=== PATIENT | female | born 1995 | race Caucasian/White ===

== ENCOUNTER 2017-10-23 10:18 | Emergency (ER) | payer OTHER ==
[~2017-10-23] VITALS: Ht 182.9 cm; Wt 73.2 kg
[2017-10-23 10:29] VITALS: TEMP 37.1; Ht 182.9 cm; Wt 73.2 kg
[2017-10-23] MEDS ORDERED: AMPH20CA3 PO (10:49)
[2017-10-23] MEDS ORDERED: BUPRTAB51 PO (10:49)
[2017-10-23] MEDS ORDERED: MEDR1INJ3 IM (10:49)
[2017-10-23] MEDS ORDERED: DIPH1TAB87 PO (10:49)
[2017-10-23] MEDS ORDERED: LAMO200T35 PO (10:49)
--- NOTE | 2017-10-23 11:06 | DIAGNOSTIC IMAGING REPORT ---
L KNEE 1 OR 2 VIEWS ROUTINE CLINICAL HISTORY: Left knee pain COMPARISON: None. DISCUSSION: No fractures or dislocations are visualized. There is no radiographic evidence of a joint effusion. There are no erosive or destructive changes. IMPRESSION: No bony abnormalities identified. Electronically signed by: Gerry Cortez M.D. 10/23/2017 11:05 AM Dictated Date/Time: 10/23/2017 11:04 AM
[2017-10-23 12:29] VITALS: BP 119/72; PULSE 109; O2SAT 99
--- NOTE | 2017-10-23 18:39 | EMERGENCY ROOM VISIT NOTE ---
ED Visit Note First contact with patient: 10:59 Chief Complaint: Left knee pain. History of Present Illness: Ms. Duckworth is a 22-year-old white female who ambulates into the ED complaining of left knee pain. Historically patient reports 3 or 4 years ago she sustained a meniscus injury to her knee. This is was evaluated by orthopedics but no surgery was performed. Since that time she reports she has had no complications or problems with her knee. 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 When she got home she was feeling well. And when she woke this morning she reports she had developed left knee pain and has noted swelling over the anterior aspect of the knee. Currently she is complaining of an achy and throbbing sensation over the superior anterior aspect of the knee. She rates her discomfort 9/10. Her pain is nonradiating. Her pain worsens with flexion of the knee greater than 90 and hyperextension. She has not identified any alleviating factors related to the pain. She has not taken any medications for pain prior to arrival at the hospital. She denies any associated symptoms including recent trauma, recent repetitive trauma, hip pain, back pain, thigh pain, lower leg pain, ankle pain, leg weakness/numbness/tingling. Review of Systems: As noted above in history of present illness. Past Medical History: Anxiety/depression, attention deficit disorder. Current Medications: Lamictal, Wellbutrin, Adderall, Benadryl, Depo-Provera. Allergies to Medications: Azithromycin, nots. Social History: Patient is currently a university student and is employed; she feels safe in her home environment; she denies tobacco use. Physical Examination: Vital Signs: Date Time Temp Pulse Resp B/P (MAP) Pulse Ox O2 Delivery O2 Flow Rate FiO2 10/23/17 12:29 109 20 119/72 99 10/23/17 10:29 37.1 117 16 123/67 98 Room Air GENERAL: 22-year-old female in mild to moderate distress due to pain, nontoxic- appearing, afebrile and hemodynamically stable. NEUROLOGICAL: Awake, alert and oriented to person, place and time. Answering questions appropriately and following commands. Normal gait. Good hand eye coordination. SKIN: Warm, dry and pink. Left Knee: Resolving contusion over the central aspect of the patella. LEFT LOWER EXTREMITY: No gross bony deformity. No shortening or malrotation. No tenderness in the hip, thigh, lower leg, ankle or foot. Mild tenderness over the anterior knee just superior and inferior to the patella. This is where the majority of the patient's swelling is present. Negative ballottement test. Negative patellar apprehension test. No laxity of the collateral or cruciate ligaments. Because of the decreased range of motion I did not perform a Maribell's test. Decreased range of motion in flexion to approximately 90 and she had no hyperextension but was able to reach full extension. I do not appreciate any tenderness over the tendon osseous structures of the hamstrings or quadriceps muscle group. With the knee stabilized she had full range of motion in plantarflexion and dorsiflexion of the ankle and flexion and extension of all toes. Throughout the lower leg the skin was warm and pink and capillary refill was brisk. She is able to distinguish light sensations through all dermatomes. ED Course: Patient is assessed as noted above. Patient's medications were reviewed. Patient was offered pain medication and refused. Left Knee X-Rays: Were read by myself and the radiologist showing no acute fractures or dislocations. I did note the at the medial compartment of the knee was decreased when compared to the lateral compartment. I do not appreciate any joint effusion but there was noticeable external swelling in the soft tissues. Patient's knee was wrapped with an Sage bandage. Patient was offered crutches and refused. Patient was educated about today's findings and instructed on her treatment plan ; she verbalized understanding and agreement with this plan. Clinical Impression: Left knee pain. Left knee swelling. Disposition: Patient discharged home in stable condition; prior to departure she was reassessed and subjectively reported she was feeling better and rated her discomfort 4/10. Plan: Comfort measures were discussed with the patient including rest, ice, Sage bandage use, elevation and alternating ibuprofen and acetaminophen every 3 hours. Patient was encouraged [facility] if no better in 7-10 days. Patient was encouraged to return to the ED for worsening/uncontrolled pain, uncontrolled swelling, leg weakness/numbness/tingling or any new/concerning symptoms.
== END 2017-10-23 12:31 | disposition home or self-care (01) ==
LOC: C.EDB 10:20 → C.EDD 12:31
DX: M25.562 Pain in left knee (principal); M25.462 Effusion, left knee; Z87.828 Personal history of other (healed) physical injury and trauma